=== PATIENT | female | born 1985 | race American Indian/Alaskan Native ===

== ENCOUNTER → 2019-09-11 16:41 | Outpatient (CLI) | payer OTHER, SELFPAY ==
[2019-09-11 18:01] LABS: Progesterone, Total 0.25 ng/mL
== END ==
PROVIDERS: Visit Provider Specialist
DX: N91.2 Amenorrhea, unspecified (principal)
CPT/HCPCS: 36415; 84144

== ENCOUNTER → 2020-08-01 09:27 | Outpatient (CLI) | payer OTHER, SELFPAY ==
--- NOTE | 2020-08-01 09:29 | DI.US.S_ITS ---
PROCEDURE: US PELVIC COMPLETE INDICATIONS: Heavy bleeding TECHNIQUE: Real-time scanning was performed of the pelvic organs, with image documentation. Additional endovaginal scanning was necessary due to incomplete visualization of the adnexal and endometrial structures by transabdominal scanning. COMPARISON: [facility], US, US PELVIC COMPLETE, 06/25/2018, 8:43. [facility], CT, CT ABD PELVIS W CON, 04/01/2016, 23:10. FINDINGS: Transabdominal scanning: Limited scanning through the kidneys shows no hydronephrosis. No pathologic free abdominal or pelvic fluid. Endovaginal scanning: Uterus: Uterus is normal in size at 9.3 x 5.9 x 6.3 cm. The endometrium measures 9 mm in combined thickness. Fluid and debris can be seen along the endometrial stripe. No abnormal vascularity can be seen along the endometrial stripe. Ovaries: The right ovary measures 4.1 x 3.7 x 3.1 cm. The left ovary measures 4.3 x 2.5 x 3.3 cm. The ovaries have a normal sonographic appearance. Numerous peripheral follicles can be seen within the ovaries. No adnexal masses are seen. IMPRESSION: Fluid and debris can be seen along the endometrial stripe, which is consistent with blood products. No abnormal vascularity can be seen along the endometrial stripe. Prominent ovaries are seen, with numerous peripheral follicles. The appearance of the ovaries is supportive of a diagnosis of polycystic ovarian syndrome. Dictated by: Heriberto Osorio M.D. on 08/01/2020 at 11:07 Approved by: Heriberto Osorio M.D. on 08/01/2020 at 11:09
[2020-08-01 09:55] LABS: Add Manual Diff / Slide Review NO; Basophils Absolute Auto 100 /uL (0-100); Basophils Percent Auto 0.7 % (0-2); Eosinophils Absolute Auto 400 /uL (0-450); Eosinophils Percent Auto 4.7 % (2-4); Hematocrit 25.8 % (36-46); Hemoglobin 8.6 g/dL (12.0-16.0); Lymphocytes Absolute Auto 3300 /uL (1100-4500); Mean Corpuscular HGB Conc 33.3 % (30-36); Mean Corpuscular Hemoglobin 28.4 PG (26-34); Mean Corpuscular Volume 85.2 fL (80-100); Monocytes Absolute Auto 500 /uL (0-900); Monocytes Percent Auto 6.1 % (3-14); Neutrophils Absolute Auto 4400 /uL (1500-7000); Neutrophils Percent Auto 50.5 % (50-75); Platelet Count 340 X10^3/uL (150-400); Red Blood Cell Count 3.02 X10^6/uL (4.0-5.2); Red Cell Distribution Width 14.2 % (11.6-14.8); White Blood Cell Count 8.7 X10^3/uL (4.5-11.0)
== END ==
PROVIDERS: PCP Family Medicine; Referring Provider Specialist; Visit Provider Specialist
DX: N92.0 Excessive and frequent menstruation with regular cycle (principal)
CPT/HCPCS: 36415; 76830; 76856; 85025

== ENCOUNTER → 2020-08-03 10:12 | Outpatient (CLI) | payer OTHER, SELFPAY ==
[2020-08-03 11:04] LABS: Ferritin 7 ng/mL (6-137)
== END ==
PROVIDERS: PCP Family Medicine; Visit Provider Specialist
DX: D64.9 Anemia, unspecified (principal)
CPT/HCPCS: 82728

== ENCOUNTER 2020-10-24 14:39 | Inpatient (IN) | payer OTHER, SELFPAY ==
[2020-10-24] VITALS (28 sets, daily range): BP systolic 103–130; BP diastolic 50–75; PULSE 99–131; RESP 16–36; TEMP 35.8–37.3; O2SAT 98–100; BMI 35.9
[2020-10-24] MEDS: SODIUM CHLORIDE 0.9% 1,000 ML 1000 ML IV (14:54)
[2020-10-24 15:17] LABS: Basophils Absolute Auto 100 /uL (0-100); Basophils Percent Auto 0.6 % (0-2); Eosinophils Absolute Auto 200 /uL (0-450); Eosinophils Percent Auto 2.1 % (2-4); Hematocrit 28.7 % (36-46); Hemoglobin 9.6 g/dL (12.0-16.0); Lymphocytes Absolute Auto 3100 /uL (1100-4500); Lymphocytes Percent Auto 36.7 % (25-40); Mean Corpuscular HGB Conc 33.5 % (30-36); Mean Corpuscular Hemoglobin 27.9 PG (26-34); Mean Corpuscular Volume 83.2 fL (80-100); Monocytes Absolute Auto 600 /uL (0-900); Monocytes Percent Auto 6.4 % (3-14); Neutrophils Absolute Auto 4600 /uL (1500-7000); Neutrophils Percent Auto 54.2 % (50-75); Platelet Count 285 X10^3/uL (150-400); Red Blood Cell Count 3.45 X10^6/uL (4.0-5.2); Red Cell Distribution Width 18.6 % (11.6-14.8); White Blood Cell Count 8.5 X10^3/uL (4.5-11.0)
[2020-10-24 15:20] LABS: INR 1.1 (0.9-1.3); Prothrombin Time 12.3 SECONDS (10.1-12.7)
[2020-10-24 15:23] LABS: Add Manual Diff / Slide Review SLIDE REVIEW; PTT Partial Thromboplastin Tim 23 SECONDS (26.4-36.2)
[2020-10-24 15:25] LABS: Alanine Aminotransferase 26 IU/L (<35); Albumin Globulin Ratio 1.4 (1.0-2.8); Alkaline Phosphatase 49 U/L (38-126); Aspartate Aminotransferase 23 IU/L (14-36); Bilirubin Total 0.1 mg/dL (0.2-1.3); Blood Urea Nitrogen 25 mg/dL (7-17); Calcium 8.9 mg/dL (8.4-10.2); Carbon Dioxide 21 mmol/L (22-32); Chloride 103 mmol/L (98-107); Estimated Glomerular Filt Rate > 60.0 mL/min (>60); Globulin 2.8 g/dL (1.7-4.1); Glucose 267 mg/dL (70-100); HEMOLYSIS < 15 (0-50); Lactate (Lactic Acid) 3.4 mmol/L (0.7-2.1); Potassium 3.6 mmol/L (3.4-5.1); Sodium 135 mmol/L (137-145); Total Protein 6.8 g/dL (6.3-8.2)
--- NOTE | 2020-10-24 15:41 | ED.GENADULT ---
HPI - General Adult General Chief complaint: Vaginal Bleeding Stated complaint: weakness, vomiting Time Seen by Provider: 10/24/20 14:56 Mode of arrival: Wheelchair History of Present Illness HPI narrative: 35-year-old type 1 diabetic with hypothyroidism and irregular menses/polycystic ovarian disease presents with severe vaginal bleeding and syncopal episode. She had had heavy vaginal bleeding 2-3 months ago and was restarted on control pills and did medroxyprogesterone taper at that time. That did stop the heavy bleeding. She had IV iron infusions because of iron deficiency anemia. Approximately 5 days ago was her 1st menstrual cycle after that episode. It began moderately heavy and has progressively gotten worse. Over the last 2 days she notes dramatic blood clots, increasing fatigue, increasing orthostasis type symptoms. She denies fevers, chills or significant abdominal pain (she notes mild pelvic cramping only). There has been no chest pain or palpitations. She has noted some exertional dyspnea and also complains of significant fatigue. Her sugars have been relatively stable with her average is at 100 (she has both pump and continuous monitor) and over the last 5 days with heavy bleeding has noticed that her averages are creeping up into the 150-200 range. Over the last 2-3 days when she is standing upright she is getting lightheaded, noting palpitations and feeling somewhat nauseated. Today she was driving from [facility] have blood work done with symptoms worsening and vaginal bleeding continuing with significant clots. As she was getting out of her car in coming into the hospital she had a syncopal episode. She came to as soon as she was supine. Related Data Home Medications Medication Instructions Recorded Confirmed insulin regular hum U-500 conc 500 25 unit SUBCUT BEDTIME 06/25/18 10/24/20 unit/mL subcutaneous soln levothyroxine 125 mcg tablet 112 mcg PO QDAY@0600 #30 tab 06/25/18 10/24/20 metformin 850 mg tablet 850 mg PO BID 06/25/18 10/24/20 rosuvastatin 20 mg tablet 20 mg PO DAILY 06/25/18 10/24/20 semaglutide 1 mg/dose (2 mg/1.5 1 mg SUBCUT QWEEK 06/02/20 10/24/20 mL) subcutaneous pen injector albuterol sulfate [Proventil HFA] 0.09 mg IH Q4HP PRN 10/24/20 lisinopril 5 mg PO DAILY 10/24/20 10/24/20 venlafaxine 75 mg PO DAILY 10/24/20 10/24/20 Previous Rx's Medication Instructions Recorded norethindrone (contraceptive) 0.35 0.35 mg PO DAILY #84 tab 06/02/20 mg tablet Allergies Allergy/AdvReac Type Severity Reaction Status Date / Time Penicillins [PENICILLINS] Allergy Severe ANAPHYLAXIS Verified 08/17/20 13:06 bupropion [BUPROPION] AdvReac Intermediate FROM Verified 08/17/20 13:06 CONTRAVE N/V naltrexone [NALTREXONE] AdvReac Intermediate FROM Verified 08/17/20 13:06 CONTRAVE N/V anti-nausea per pt reprot Allergy Intermediate Nausea Uncoded 08/17/20 13:06 unsure which Review of Systems Review of Systems ROS Unobtainable: All systems reviewed & are unremarkable except as noted in HPI and below Patient History Medical History Depression Diabetes mellitus Hepatitis Infertility Irregular periods/menstrual cycles Menorrhagia with regular cycle (01/31/16) Ovarian cyst Painful menstrual periods Surgical History Anesthesia History of ear surgery Social History household members: spouse and children Smoking Status: Never smoker alcohol intake: current Smoking Status: Never smoker Substance Use Type: does not use Exam Narrative Exam Narrative: General: Very pale but in no acute distress. Able to give a complete and coherent history. Well-nourished well-developed HEENT: Moist mucous membranes, normal sclera with reactive pupils, very pale lips, sclera and mucous membranes Neck: No JVD, supple Respiratory: Lungs are clear to auscultation, no wheezing no rales no rhonchi. Full and symmetrical air movement Cardiac: Tachycardic but Regular rate and rhythm no murmurs no bruits. Orthostatic after a L of fluid simply going from lying down to sitting Abdomen: Soft, nontender, good bowel tones, no flank pain Skin: Warm and dry, no rashes Neurologic: Grossly neurologically intact with no obvious asymmetries or abnormalities Extremities: No trauma, well perfused Pelvic: Large clots are appreciated further exam is not pursued Psych: Cooperative, appropriate insight and affect Initial Vital Signs Initial Vital Signs: Vital Signs Temperature 96.4 F L 10/24/20 14:45 Pulse Rate 131 H 10/24/20 14:45 Respiratory Rate 16 10/24/20 14:45 Blood Pressure 124/58 L 10/24/20 14:45 Pulse Oximetry 100 10/24/20 14:45 Course Orders Ordered: ED Orders 10/24/20 14:57 COVID19 Stat 10/24/20 15:03 Complete Blood Count AUTO DIFF Stat Comprehensive Metabolic Panel Stat HCG Quantitative /Beta subunit Stat Lactate (Lactic Acid) Stat Packed Cells Stat Partial Thromboplastin Time Stat Prothrombin Time INR Stat Type and Screen Stat 10/24/20 16:25 Hemoglobin and Hematocrit Stat Dextrose (Dextrose 50 % In Water 25 Gm/50 Ml Syringe) 25 gm IV PRN PRN PRN Reason: Hypoglycemia Lactated Ringer's (Lactated Ringers) 1,000 mls @ 100 mls/hr IV CONT IRIS Medroxyprogesterone Acetate (Medroxyprogesterone Acetate 10 Mg Tablet) 10 mg PO Q2H [facility] Last Admin: 10/24/20 19:03 Dose: 10 mg Documented by: POLO Discontinued Medications Sodium Chloride (Normal Saline 0.9%) 1,000 mls @ 1,000 mls/hr IV BOLUS ONE Stop: 10/24/20 15:49 Last Infusion: 10/24/20 16:36 Dose: 0 mls/hr Documented by: Admin: 10/24/20 14:54 Dose: 1,000 mls/hr Documented by: EVA Vital Signs Vital signs: Vital Signs - 8 hr 10/24/20 14:45 10/24/20 14:50 10/24/20 14:54 Temperature 96.4 F L Pulse Rate 131 H 124 H 123 H Respiratory Rate 16 24 36 H Blood Pressure 124/58 L 111/50 L Blood Pressure [Left Arm] Pulse Oximetry 100 99 100 10/24/20 15:00 10/24/20 15:03 10/24/20 15:15 Temperature Pulse Rate 118 H 118 H 118 H Respiratory Rate 30 H 30 H 28 H Blood Pressure 120/58 L 112/58 L Blood Pressure [Left Arm] Pulse Oximetry 100 100 100 10/24/20 15:30 10/24/20 15:45 10/24/20 16:00 Temperature Pulse Rate 115 H 111 H 117 H Respiratory Rate 29 H 24 24 Blood Pressure 116/63 108/56 L 106/53 L Blood Pressure [Left Arm] Pulse Oximetry 100 100 100 10/24/20 16:10 10/24/20 16:15 10/24/20 16:30 Temperature 97.8 F Pulse Rate 111 H 113 H 111 H Respiratory Rate 16 16 24 Blood Pressure 130/60 117/64 Blood Pressure [Left Arm] 117/60 Pulse Oximetry 100 100 100 10/24/20 16:45 10/24/20 16:51 10/24/20 16:56 Temperature 97.8 F Pulse Rate 115 H 110 H 110 H Respiratory Rate 17 28 H 20 Blood Pressure 117/63 117/60 117/60 Blood Pressure [Left Arm] Pulse Oximetry 100 100 10/24/20 17:00 10/24/20 17:12 10/24/20 17:15 Temperature 98.8 F Pulse Rate 109 H 111 H 108 H Respiratory Rate 29 H 29 H 26 H Blood Pressure 116/59 L 122/67 111/61 Blood Pressure [Left Arm] Pulse Oximetry 100 100 100 10/24/20 17:30 Temperature Pulse Rate 109 H Respiratory Rate 25 H Blood Pressure Blood Pressure [Left Arm] Pulse Oximetry 100 Medical Decision Making Medical Records Medical records reviewed: Yes I reviewed the patient's medical records. Lab Data Lab results reviewed: Yes I reviewed the patient's lab results. Result diagrams: 10/24/20 16:25 10/24/20 15:03 Labs: Lab Results 10/24/20 10/24/20 10/24/20 Range/Units 14:57 15:03 15:03 WBC 8.5 (4.5-11.0) X10^3/uL RBC 3.45 L (4.0-5.2) X10^6/uL Hgb 9.6 L (12.0-16.0) g/dL Hct 28.7 L (36-46) % MCV 83.2 (80-100) fL MCH 27.9 (26-34) PG MCHC 33.5 (30-36) % RDW 18.6 H (11.6-14.8) % Plt Count 285 (150-400) X10^3/uL Neut % (Auto) 54.2 (50-75) % Lymph % (Auto) 36.7 (25-40) % [place] % (Auto) 6.4 (3-14) % Eos % (Auto) 2.1 (2-4) % Baso % (Auto) 0.6 (0-2) % Neut # (Auto) 4600 (5232-2863) /uL Lymph # (Auto) 3100 (9108-2216) /uL [place] # (Auto) 600 (0-900) /uL Eos # (Auto) 200 (0-450) /uL Baso # (Auto) 100 (0-100) /uL RBC Morphology See below Polychromasia 1+ H Hypochromasia 1+ H Microcytosis 1+ H PT 12.3 (10.1-12.7) SECONDS INR 1.1 (0.9-1.3) APTT 23 L (26.4-36.2) SECONDS Sodium (137-145) mmol/L Potassium (3.4-5.1) mmol/L Chloride (98-107) mmol/L Carbon Dioxide (22-32) mmol/L BUN (7-17) mg/dL Creatinine (0.52-1.04) mg/dL Estimated GFR (>60) mL/min BUN/Creatinine Ratio (6-22) Glucose (70-100) mg/dL Lactate (0.7-2.1) mmol/L Calcium (8.4-10.2) mg/dL Total Bilirubin (0.2-1.3) mg/dL AST (14-36) IU/L ALT (<35) IU/L Alkaline Phosphatase (38-126) U/L Total Protein (6.3-8.2) g/dL Albumin (3.5-5.0) g/dL Globulin (1.7-4.1) g/dL Albumin/Globulin Ratio (1.0-2.8) HCG, Quant mIU/mL SARS-CoV-2 (PCR) Negative (Negative) Blood Type Antibody Screen Crossmatch 10/24/20 10/24/20 10/24/20 Range/Units 15:03 15:03 15:03 WBC (4.5-11.0) X10^3/uL RBC (4.0-5.2) X10^6/uL Hgb (12.0-16.0) g/dL Hct (36-46) % MCV (80-100) fL MCH (26-34) PG MCHC (30-36) % RDW (11.6-14.8) % Plt Count (150-400) X10^3/uL Neut % (Auto) (50-75) % Lymph % (Auto) (25-40) % [place] % (Auto) (3-14) % Eos % (Auto) (2-4) % Baso % (Auto) (0-2) % Neut # (Auto) (1607-0186) /uL Lymph # (Auto) (4501-3038) /uL [place] # (Auto) (0-900) /uL Eos # (Auto) (0-450) /uL Baso # (Auto) (0-100) /uL RBC Morphology Polychromasia Hypochromasia Microcytosis PT (10.1-12.7) SECONDS INR (0.9-1.3) APTT (26.4-36.2) SECONDS Sodium 135 L (137-145) mmol/L Potassium 3.6 (3.4-5.1) mmol/L Chloride 103 (98-107) mmol/L Carbon Dioxide 21 L (22-32) mmol/L BUN 25 H (7-17) mg/dL Creatinine 1.00 (0.52-1.04) mg/dL Estimated GFR > 60.0 (>60) mL/min BUN/Creatinine Ratio 25.0 H (6-22) Glucose 267 H (70-100) mg/dL Lactate 3.4 H (0.7-2.1) mmol/L Calcium 8.9 (8.4-10.2) mg/dL Total Bilirubin 0.1 L (0.2-1.3) mg/dL AST 23 (14-36) IU/L ALT 26 (<35) IU/L Alkaline Phosphatase 49 (38-126) U/L Total Protein 6.8 (6.3-8.2) g/dL Albumin 4.0 (3.5-5.0) g/dL Globulin 2.8 (1.7-4.1) g/dL Albumin/Globulin Ratio 1.4 (1.0-2.8) HCG, Quant < 2.4 mIU/mL SARS-CoV-2 (PCR) (Negative) Blood Type A Positive Antibody Screen Negative Crossmatch See Detail 10/24/20 Range/Units 16:25 WBC (4.5-11.0) X10^3/uL RBC (4.0-5.2) X10^6/uL Hgb 8.8 L (12.0-16.0) g/dL Hct 26.0 L (36-46) % MCV (80-100) fL MCH (26-34) PG MCHC (30-36) % RDW (11.6-14.8) % Plt Count (150-400) X10^3/uL Neut % (Auto) (50-75) % Lymph % (Auto) (25-40) % [place] % (Auto) (3-14) % Eos % (Auto) (2-4) % Baso % (Auto) (0-2) % Neut # (Auto) (7626-6152) /uL Lymph # (Auto) (4745-0669) /uL [place] # (Auto) (0-900) /uL Eos # (Auto) (0-450) /uL Baso # (Auto) (0-100) /uL RBC Morphology Polychromasia Hypochromasia Microcytosis PT (10.1-12.7) SECONDS INR (0.9-1.3) APTT (26.4-36.2) SECONDS Sodium (137-145) mmol/L Potassium (3.4-5.1) mmol/L Chloride (98-107) mmol/L Carbon Dioxide (22-32) mmol/L BUN (7-17) mg/dL Creatinine (0.52-1.04) mg/dL Estimated GFR (>60) mL/min BUN/Creatinine Ratio (6-22) Glucose (70-100) mg/dL Lactate (0.7-2.1) mmol/L Calcium (8.4-10.2) mg/dL Total Bilirubin (0.2-1.3) mg/dL AST (14-36) IU/L ALT (<35) IU/L Alkaline Phosphatase (38-126) U/L Total Protein (6.3-8.2) g/dL Albumin (3.5-5.0) g/dL Globulin (1.7-4.1) g/dL Albumin/Globulin Ratio (1.0-2.8) HCG, Quant mIU/mL SARS-CoV-2 (PCR) (Negative) Blood Type Antibody Screen Crossmatch Point of Care Testing Glucose POC 246 Point of care testing: Point of Care Testing Glucose POC 246 MDM Narrative Medical decision making narrative: 35-year-old woman with 5 days of heavy vaginal bleeding in 48 hours with very heavy vaginal bleeding. She is starting with moderate iron deficiency anemia already. Initial H&H with moderate dehydration is similar to her baseline. The fact that she has lost so much blood, has still quite a bit of clot easily seen and more coming out and that her heart rate before L of fluid was 130 to supine down to 117 supine but as soon as she sits up back to 100 and 30 with dizziness. I suspect she is going to need blood and will begin her 1st unit down here. Talk with her OBGYN about hospital admission. There is no evidence of DKA, or infection at this time Care is reviewed with Dr. Ellis, her OBGYN. She will plan on admitting her transfusing as needed and restarting the medroxyprogesterone taper that had been effective for her previously. Unfortunately Funmi still is hoping to have another so many of the options for dealing with this heavy vaginal bleeding are somewhat limited. At this time she is still significantly orthostatic but alert and appropriate. Safe for transfer to the floor Discharge Plan Departure Patient Disposition: Admitted as Observation Clinical Impression: Vaginal bleeding, Menorrhagia with irregular cycle, Syncope and collapse Anemia Qualifiers: Anemia type: iron deficiency Iron deficiency anemia type: chronic blood loss Qualified Code(s): D50.0 - Iron deficiency anemia secondary to blood loss (chronic) Admit Date/Time: 10/24/20 17:31 Admit Provider: Fatou Ellis
[2020-10-24 15:42] LABS: HCG Quantitative /Beta subunit < 2.4 mIU/mL
[2020-10-24 15:58] LABS: COVID19 -Nasal RAPID Negative (Negative)
[2020-10-24 16:05] LABS: Hypochromasia 1+; Microcytosis 1+; Polychromasia 1+
[2020-10-24 16:33] LABS: Hemoglobin 8.8 g/dL (12.0-16.0)
[2020-10-24 17:09] LABS: Reflexed Lactate in 2 Hours Y
--- NOTE | 2020-10-24 17:16 | P.HPOB_ITS ---
History of Present Illness History of Present Illness Reason for admission: vaginal bleeding Narrative: Funmi Leija is a 35 year old female admitted with menorrhagia and syncopal episode. Patient has a long history of PCOS with irregular menses. In the past after her delivery of her son she had a Mirena IUD placed which was expelled. Over the years the patient has been tried on Depo-Provera which had difficulty with her diabetes and depression. She is not a good candidate for combination control pills due to her medical illnesses and medications. Patient was hoping to have another child sometime in the future. Patient was seen for menorrhagia 08/01/2020 and had a normal vaginal ultrasound without evidence of uterine pathology, or endometrial pathology. Patient responded well to Provera therapy. She received IV iron therapy for anemia. She was started on norethindrone control pills and this is the 1st menses since her Provera withdrawal therapy. [facility] Medical History Depression Diabetes mellitus Hepatitis Infertility Irregular periods/menstrual cycles Menorrhagia with regular cycle (01/31/16) Ovarian cyst Painful menstrual periods Surgical History Anesthesia History of ear surgery Social History Smoking Status: Never smoker Meds Home Medications and Allergies Home Medications Medication Instructions Recorded Confirmed Type albuterol sulfate [Proventil HFA] 0.09 mg IH Q4HP #1 07/07/12 09/11/19 Rx insulin regular hum U-500 conc 500 25 unit SUBCUT BEDTIME 06/25/18 09/11/19 History unit/mL subcutaneous soln levothyroxine 125 mcg tablet 112 mcg PO QDAY@0600 #30 tab 06/25/18 09/11/19 Hi story lisinopril 10 1 tab PO DAILY 06/25/18 09/11/19 History mg-hydrochlorothiazide 12.5 mg tablet metformin 850 mg tablet 850 mg PO BID 06/25/18 09/11/19 History rosuvastatin 20 mg tablet 20 mg PO DAILY 06/25/18 09/11/19 History norethindrone (contraceptive) 0.35 0.35 mg PO DAILY #84 tab 06/02/20 06/02/20 Rx mg tablet semaglutide 1 mg/dose (2 mg/1.5 1 mg SUBCUT QWEEK 06/02/20 06/02/20 History mL) subcutaneous pen injector medroxyprogesterone 10 mg tablet See Rx Instructions PO DAILY #90 10/24/20 Rx tab Allergies Allergy/AdvReac Type Severity Reaction Status Date / Time Penicillins [PENICILLINS] Allergy Severe ANAPHYLAXIS Verified 08/17/20 13:06 bupropion [BUPROPION] AdvReac Intermediate FROM Verified 08/17/20 13:06 CONTRAVE N/V naltrexone [NALTREXONE] AdvReac Intermediate FROM Verified 08/17/20 13:06 CONTRAVE N/V anti-nausea per pt reprot Allergy Intermediate Nausea Uncoded 08/17/20 13:06 unsure which Review of Systems Review of Systems Narrative: Patient denies headaches. She was feeling lightheaded and dizzy. Patient denies any fevers. She started her menses 5 days ago. Initially it was fine but then she started passing clots. She had some mild cramping when her menses for started but no pain since. She has been faithful with her norethindrone control pills. She decided to come off [place] to get blood work done but was seen to have a syncopal episode in the parking lot and was brought to the emergency room. ROS: Yes All systems reviewed with the patient and are negative except as otherwise documented Exam Vital Signs (past 8 hours): - 10/24/20 14:45 10/24/20 14:50 10/24/20 14:54 Temperature 96.4 F L Pulse Rate 131 H 124 H 123 H Respiratory Rate 16 24 36 H Blood Pressure 124/58 L 111/50 L Blood Pressure [Left Arm] Pulse Oximetry 100 99 100 10/24/20 15:00 10/24/20 15:03 10/24/20 15:15 Temperature Pulse Rate 118 H 118 H 118 H Respiratory Rate 30 H 30 H 28 H Blood Pressure 120/58 L 112/58 L Blood Pressure [Left Arm] Pulse Oximetry 100 100 100 10/24/20 15:30 10/24/20 15:45 10/24/20 16:00 Temperature Pulse Rate 115 H 111 H 117 H Respiratory Rate 29 H 24 24 Blood Pressure 116/63 108/56 L 106/53 L Blood Pressure [Left Arm] Pulse Oximetry 100 100 100 10/24/20 16:10 10/24/20 16:15 10/24/20 16:30 Temperature 97.8 F Pulse Rate 111 H 113 H 111 H Respiratory Rate 16 16 24 Blood Pressure 130/60 117/64 Blood Pressure [Left Arm] 117/60 Pulse Oximetry 100 100 100 10/24/20 16:45 10/24/20 16:56 10/24/20 17:12 Temperature 97.8 F 98.8 F Pulse Rate 115 H 110 H 109 H Respiratory Rate 17 20 18 Blood Pressure 117/63 117/60 122/67 Blood Pressure [Left Arm] Pulse Oximetry 100 Oxygen Delivery Method Room Air Narrative Exam Narrative: HEENT exam within normal limits. Lungs are clear to auscultation percussion. Heart is tachycardic but regular rate and rhythm. Abdomen is soft, nontender. Patient is passing clots vaginally. Pelvic exam not performed. Extremities without edema and nontender. Objective Labs Result Diagrams: 10/24/20 16:25 10/24/20 15:03 Labs: Laboratory Results - last 24 hr 10/24/20 10/24/20 10/24/20 14:57 15:03 15:03 WBC 8.5 RBC 3.45 L Hgb 9.6 L Hct 28.7 L MCV 83.2 MCH 27.9 MCHC 33.5 RDW 18.6 H Plt Count 285 Neut % (Auto) 54.2 Lymph % (Auto) 36.7 [place] % (Auto) 6.4 Eos % (Auto) 2.1 Baso % (Auto) 0.6 Neut # (Auto) 4600 Lymph # (Auto) 3100 [place] # (Auto) 600 Eos # (Auto) 200 Baso # (Auto) 100 RBC Morphology See below Polychromasia 1+ H Hypochromasia 1+ H Microcytosis 1+ H PT 12.3 INR 1.1 APTT 23 L Sodium Potassium Chloride Carbon Dioxide BUN Creatinine Estimated GFR BUN/Creatinine Ratio Glucose Lactate Calcium Total Bilirubin AST ALT Alkaline Phosphatase Total Protein Albumin Globulin Albumin/Globulin Ratio HCG, Quant SARS-CoV-2 (PCR) Negative Blood Type Antibody Screen Crossmatch 10/24/20 10/24/20 10/24/20 15:03 15:03 15:03 WBC RBC Hgb Hct MCV MCH MCHC RDW Plt Count Neut % (Auto) Lymph % (Auto) [place] % (Auto) Eos % (Auto) Baso % (Auto) Neut # (Auto) Lymph # (Auto) [place] # (Auto) Eos # (Auto) Baso # (Auto) RBC Morphology Polychromasia Hypochromasia Microcytosis PT INR APTT Sodium 135 L Potassium 3.6 Chloride 103 Carbon Dioxide 21 L BUN 25 H Creatinine 1.00 Estimated GFR > 60.0 BUN/Creatinine Ratio 25.0 H Glucose 267 H Lactate 3.4 H Calcium 8.9 Total Bilirubin 0.1 L AST 23 ALT 26 Alkaline Phosphatase 49 Total Protein 6.8 Albumin 4.0 Globulin 2.8 Albumin/Globulin Ratio 1.4 HCG, Quant < 2.4 SARS-CoV-2 (PCR) Blood Type A Positive Antibody Screen Negative Crossmatch See Detail 10/24/20 16:25 WBC RBC Hgb 8.8 L Hct 26.0 L MCV MCH MCHC RDW Plt Count Neut % (Auto) Lymph % (Auto) [place] % (Auto) Eos % (Auto) Baso % (Auto) Neut # (Auto) Lymph # (Auto) [place] # (Auto) Eos # (Auto) Baso # (Auto) RBC Morphology Polychromasia Hypochromasia Microcytosis PT INR APTT Sodium Potassium Chloride Carbon Dioxide BUN Creatinine Estimated GFR BUN/Creatinine Ratio Glucose Lactate Calcium Total Bilirubin AST ALT Alkaline Phosphatase Total Protein Albumin Globulin Albumin/Globulin Ratio HCG, Quant SARS-CoV-2 (PCR) Blood Type Antibody Screen Crossmatch Assessment & Plan Assessment and plan (1) Menorrhagia with irregular cycle: Status: Acute (2) Type 2 diabetes mellitus without complication, with long-term current use of insulin: Status: None (3) Essential hypertension: Status: None Assessment & Plan narrative: Menorrhagia despite oral norethindrone. Patient will be given 2 units of packed red blood cells. Will begin Provera 10 mg every 2 hours to slow the bleeding. Once her bleeding slows we will try a Mirena IUD again to see if we can control her bleeding. Patient is agreeable that she will delay for now. Patient's insulin dependent diabetes is been under control. She has an insulin pump. She will continue use her insulin pump with hospitalization. Patient's depression and anxiety are under control. COVID-19 COVID-19 status: Negative Time Spent With Patient Time with patient: less than 15 minutes
[2020-10-24 17:54] LABS: Lactate 2HR (Lactic Acid Rflx) 1.4 mmol/L (0.7-2.1)
[2020-10-24] MEDS: MEDROXYPROGESTERONE ACETATE 10 MG TABLET PO ×4 (19:03→23:50)
[2020-10-24] MEDS: LACTATED RINGERS 1,000 ML 100 ML IV (23:19)
--- NOTE | 2020-10-24 23:29 | PC.NURSE ---
Pt denies dizziness and nausea, at rest; tolerated chicken soup for dinner; patient reports passing large, bloody clots into toilet; this RN called MD to confirm cancellation of UA order from ED, MD also aware of tachycardia between 110-118; HR WNL @ 99, s/p 2 units blood; IV fluids infusing and patient reports feeling better.
[2020-10-25] VITALS (14 sets, daily range): BP systolic 97–127; BP diastolic 49–80; PULSE 92–114; RESP 13–22; TEMP 36.2–37.2; O2SAT 95–100; BMI 35.9
--- NOTE | 2020-10-25 | PATH_ITS ---
[facility] Accession Number: [id number] . 01 Material submitted: . endometrium - ENDOMETRIAL CURETTINGS . 01 Clinical history: . WEAKNESS, VOMITING . 02 Diagnosis: Endometrial Curettings: Portions of proliferative endometrium with a small focus of benign eosinophilic metaplasia; negative for glandular hyperplasia, cytologic atypia, or malignancy. Some endometrial fragments demonstrate prominent vessels, suggestive of polyp, if clinical and imaging studies are concordant. MRV 10/27/2020 1023 Local . 02 Electronically signed: . Tamia Martinez MD, Pathologist NPI- [id number] . 01 Gross description: . The specimen is received in formalin, labeled endometrial curettings and consists of multiple whaley-pink fragments of soft tissue admixed with mucus and clotted blood measuring 2.0 x 1.5 x 0.3 cm in aggregate. The specimen is filtered and entirely submitted in cassette A1. ([id number]) /MRV 10/26/2020 0948 Local . 02 Pathologist provided ICD-10: N92.1 . 02 CPT . 164550 Performed at: 01 [facility] [address] [place] [address], [place], [place] [id number] MD Dick Dominguez MD Phone: [phone] Performed at: 02 [facility] [address] [place], [place] [id number] MD Mariam Croft MD Phone: [phone]
[2020-10-25] MEDS: MEDROXYPROGESTERONE ACETATE 10 MG TABLET PO ×8 (01:46→15:26)
--- NOTE | 2020-10-25 01:58 | PC.NURSE ---
Addendum entered by Tori Vigil R.N. 10/25/20 05:48: Up to bathroom this morning and peripad saturated with serosanguinous vaginal bleeding. Patient states she passed clots but RIVER RAFTING GUIDE reports no clots noted. Patient states bleeding has decreased from when first arrived at hospital. Original Note: 0004: patient is alert and oriented. Breath sounds CTA with RA sat of 99%. HRR but tachy in low 100's apically. Denies dizziness or SOB. Denies nausea. BT present and abdomen is soft. Denies dysuria, frequency or urgency. Is having continued vaginal bleeding causing urine to be blood tinged. Peripad changed and was approximately 50% saturated with serosanguinous drainage; noted moderate size clots in toilet after urinating but none noted on pad. Is able to turn herself in bed. Assisted when out of bed due to having fallen prior to hospitalization but appears steady on feet. Bilateral calf SCD's applied after being up to bathroom but now requested they be removed as she states she is unable to sleep with them on; reminded to ankle wave when awake. Denies pain. Fall risk score is high and bed alarm is activated.
[2020-10-25 06:26] LABS: Basophils Absolute Auto 0 /uL (0-100); Basophils Percent Auto 0.5 % (0-2); Eosinophils Absolute Auto 200 /uL (0-450); Eosinophils Percent Auto 2.7 % (2-4); Hematocrit 29.9 % (36-46); Hemoglobin 10.3 g/dL (12.0-16.0); Lymphocytes Absolute Auto 2800 /uL (1100-4500); Lymphocytes Percent Auto 31.8 % (25-40); Mean Corpuscular HGB Conc 34.5 % (30-36); Mean Corpuscular Hemoglobin 29.5 PG (26-34); Mean Corpuscular Volume 85.5 fL (80-100); Monocytes Absolute Auto 500 /uL (0-900); Monocytes Percent Auto 5.7 % (3-14); Neutrophils Absolute Auto 5200 /uL (1500-7000); Neutrophils Percent Auto 59.3 % (50-75); Platelet Count 231 X10^3/uL (150-400); Red Cell Distribution Width 17.4 % (11.6-14.8); White Blood Cell Count 8.7 X10^3/uL (4.5-11.0)
[2020-10-25 06:42] LABS: Add Manual Diff / Slide Review SLIDE REVIEW
[2020-10-25 06:55] LABS: Anisocytosis 1+; Polychromasia 1+
[2020-10-25] MEDS: LACTATED RINGERS 1,000 ML 100 ML IV (08:54)
--- NOTE | 2020-10-25 09:14 | CM.DANOTE ---
DCP: Case received, EMR reviewed and met with patient. Introduced self and role. Was able to obtain information from patient regarding her baseline activity level prior to hospitalization. DCP assessment completed with information currently available. Patient is a 35 year old female who admitted yesterday afternoon to the care of the hospitalist/MILK HANDLER team. PCP: Dr. Shine. Payer: confirmed: Ashley Ghosh. Patient came to the hospital via wheel-chair secondary to dizziness, near syncopal episode. Patient had been on her way to [facility] to get her blood work done, and she became weak, and was on the ground. Patient has diagnosis of menorrhagia, and was passing clots. She also has history of anemia, where she has had to get iron injections. Patient also has history of diabetes and depression. Met with patient in her room. She is pleasant, alert and oriented. She was sitting up in bed. Confirmed that she resides [place] with her spouse, Cedric, and her 14 year old son. She is employed on [place] at [employer]. She is independent at her baseline. P: DCP to continue to follow. Patient should be able to go home when she is medically stable. Bria Chery, RN/Staple Processing Machine Operator
--- NOTE | 2020-10-25 09:36 | P.PN_ITS ---
Subjective Subjective Date Patient Seen: 10/25/20 Time Patient Seen: 09:36 Interval history: Patient states she is feeling better. She is still little lightheaded. She was able to eat breakfast. She is still passing blood clots. Exam Vital Signs (past 8 hours): - 10/25/20 06:00 10/25/20 08:00 Temperature 99.0 F 97.8 F Pulse Rate 108 H 96 H Respiratory Rate 18 15 Blood Pressure 127/57 L 126/80 Pulse Oximetry 99 100 Oxygen Delivery Method Room Air Oxygen Flow Rate 0 Narrative Exam Narrative: Abdomen is soft, nontender. Patient is still passing blood clots with her urine. Extremities nontender. Objective Labs Result Diagrams: 10/25/20 05:47 10/24/20 15:03 Labs: Laboratory Results - last 24 hr 10/24/20 10/24/20 10/24/20 14:57 15:03 15:03 WBC 8.5 RBC 3.45 L Hgb 9.6 L Hct 28.7 L MCV 83.2 MCH 27.9 MCHC 33.5 RDW 18.6 H Plt Count 285 Neut % (Auto) 54.2 Lymph % (Auto) 36.7 [place] % (Auto) 6.4 Eos % (Auto) 2.1 Baso % (Auto) 0.6 Neut # (Auto) 4600 Lymph # (Auto) 3100 [place] # (Auto) 600 Eos # (Auto) 200 Baso # (Auto) 100 RBC Morphology See below Polychromasia 1+ H Hypochromasia 1+ H Anisocytosis Microcytosis 1+ H PT 12.3 INR 1.1 APTT 23 L Sodium Potassium Chloride Carbon Dioxide BUN Creatinine Estimated GFR BUN/Creatinine Ratio Glucose Lactate Calcium Total Bilirubin AST ALT Alkaline Phosphatase Total Protein Albumin Globulin Albumin/Globulin Ratio HCG, Quant SARS-CoV-2 (PCR) Negative Blood Type Antibody Screen Crossmatch 10/24/20 10/24/20 10/24/20 15:03 15:03 15:03 WBC RBC Hgb Hct MCV MCH MCHC RDW Plt Count Neut % (Auto) Lymph % (Auto) [place] % (Auto) Eos % (Auto) Baso % (Auto) Neut # (Auto) Lymph # (Auto) [place] # (Auto) Eos # (Auto) Baso # (Auto) RBC Morphology Polychromasia Hypochromasia Anisocytosis Microcytosis PT INR APTT Sodium 135 L Potassium 3.6 Chloride 103 Carbon Dioxide 21 L BUN 25 H Creatinine 1.00 Estimated GFR > 60.0 BUN/Creatinine Ratio 25.0 H Glucose 267 H Lactate 3.4 H Calcium 8.9 Total Bilirubin 0.1 L AST 23 ALT 26 Alkaline Phosphatase 49 Total Protein 6.8 Albumin 4.0 Globulin 2.8 Albumin/Globulin Ratio 1.4 HCG, Quant < 2.4 SARS-CoV-2 (PCR) Blood Type A Positive Antibody Screen Negative Crossmatch See Detail 10/24/20 10/24/20 10/25/20 16:25 17:32 05:47 WBC 8.7 RBC 3.50 L Hgb 8.8 L 10.3 L Hct 26.0 L 29.9 L MCV 85.5 MCH 29.5 MCHC 34.5 RDW 17.4 H Plt Count 231 Neut % (Auto) 59.3 Lymph % (Auto) 31.8 [place] % (Auto) 5.7 Eos % (Auto) 2.7 Baso % (Auto) 0.5 Neut # (Auto) 5200 Lymph # (Auto) 2800 [place] # (Auto) 500 Eos # (Auto) 200 Baso # (Auto) 0 RBC Morphology See below Polychromasia 1+ H Hypochromasia Anisocytosis 1+ H Microcytosis PT INR APTT Sodium Potassium Chloride Carbon Dioxide BUN Creatinine Estimated GFR BUN/Creatinine Ratio Glucose Lactate 1.4 Calcium Total Bilirubin AST ALT Alkaline Phosphatase Total Protein Albumin Globulin Albumin/Globulin Ratio HCG, Quant SARS-CoV-2 (PCR) Blood Type Antibody Screen Crossmatch [facility] Medical History Depression Diabetes mellitus Hepatitis Infertility Irregular periods/menstrual cycles Menorrhagia with regular cycle (01/31/16) Ovarian cyst Painful menstrual periods Surgical History Anesthesia History of ear surgery Social History household members: spouse and children Smoking Status: Never smoker alcohol intake: current Assessment & Plan Assessment and plan (1) Menorrhagia with irregular cycle: Status: Acute Assessment & Plan narrative: Patient is improved after 2 units of packed red blood cells. She is still passing blood clots despite Q 2 hour Provera. Discussed with the patient that the next step would be hysteroscopy D&C. Patient has had this before. She is also agreeable to have a Mirena IUD placed. Consent form her for hysteroscopy D&C was reviewed with the patient. Risk of infection, perforation of the uterus that could result in damage to internal structures such as bowel, bladder, ureters that could require opening the abdomen to repair or additional surgery. Continued bleeding. Reaction to medication or anesthesia could result in or permanent or partial disability.
[2020-10-25] MEDS: VENLAFAXINE ER 75 MG CAP PO (09:57)
[2020-10-25] MEDS: DEXTROSE 5%-LACTATED RINGERS 1,000 ML 84 ML IV (09:57)
--- NOTE | 2020-10-25 15:25 | DIET.PN ---
Dietary Progress Note Assessment: 35y F admitted for menorrhagia with irregular cycle r/t known PCOS referred to nutrition as pt is diabetic c insulin pump and following a ketogenic diet. HT: 160cm WT: 92kg UBW: pt is -10kg from 2018 BMI: 36.0 Labs: hgb 8.6 L, BUN 25 H, admit BG 267 H Pt has been using insulin pump to manage her DM for 10y, has been using current pump x1.5y. Pt went on Ozempic a year ago, it suppresses her appetite, causes some dry mouth and reduced thirst. Per pt has had A1cs in the 7's but her last reading was around 9 (not in [facility] records). Pt endorses starting to drink soda again 12-24oz/d which motivated her to follow a ketogenic diet to try to better manage her BGs and weight around 6w ago. Pt reports BGs down to 90-120s rather than >200s because of the diet. Pt tries to limit carb intake to 30 net carbs/d and understands she still doses insulin to full carb count. Pt tries to stick to 1200-1400kcals. Pt avoiding beans and other high fiber foods secondary to carb content. Usual Day: fasts 8pm-8am 8am 16oz latte made c heavy cream from coffee stand (she reports its 8oz whipping cream) 2pm low carb tortilla c avocado, chicken or red meat, and salad Dinner: similar Sn: peanuts, macadamia nuts, baybel cheese, veggies drinks: water, latte RD Impression: Pt well informed regarding use and calculations r/t insulin pump usage. Pts Ozempic should be supporting her weight loss, however pts consumption of 16oz heavy cream latte is providing little nutrition in the morning, increasing her risk for cardiovascular disease from saturated fat (at higher risk r/t PCOS), and comes in at a whopping 1200 kcals. Pt is miscalculating kcal count of her latte likely reducing any positive effects of a keto diet. When pt is off keto, she craves sweets and often falls into poor dietary patterns. Interventions: 1. Encouraged pt to find a stable, healthy, moderate/low carb (120g) diet she can stick to in the prison to support healthy weight over time. Encouraged pt to remove daily latte or make 8oz max, and add healthy, protein rich foods to support metabolism and PCOS including egg bites for a balanced breakfast meal. 2. Encouraged pt to drink spearmint tea (warm or iced) to encourage fluid intake as well as support for PCOS. 3. Encouraged pt to start regular joyful exercise including some strength training to aid weight loss and support lean body mass and metabolism. 4. Encouraged pt to consume more soluble fiber from beans and lars seeds to support cardiovascular health, blood sugar regulation, and weight. Diet Order: CCD EER: 120g CHO
--- NOTE | 2020-10-25 15:41 | PM.PREOP ---
Pre-operative Note COVID-19 COVID-19 status: Negative Result date/Date tested (Pos, Neg/Pending): 10/24/20 Interval Note History & Physical reviewed/Exam performed by Physician: Yes Changes to H&P: No
[2020-10-25] MEDS: LACTATED RINGERS 1,000 ML 42 ML IV (15:45)
--- NOTE | 2020-10-25 16:12 | SUR.OPER ---
Lithotomy on padded OR bed, head on pillow, arms secured on padded arm boards at <90 degrees abduction. Legs secured in padded yellow fins stirrups.
--- NOTE | 2020-10-25 16:38 | P.OP_ITS ---
Operative Date/Time/Diagnoses Date of procedure: 10/25/20 Time of procedure: 16:38 Pre-op diagnosis: Menorrhagia with irregular cycle Post-op diagnosis: same Procedure & Clinicians Procedure: Hysteroscopy D&C with placement of Mirena IUD Same procedure as scheduled: Yes Indications: Menorrhagia with irregular cycle requiring blood transfusion Surgeon: Fatou Ellis Click Yes if Unassisted: Yes Anesthesia Type: General Operative Notes Findings: Normal exam under anesthesia. Blood clots in vagina. Very thin endometrium. No obvious cause of heavy bleeding. Bicornuate uterus. Closure Type: not applicable Specimen(s): other (Endometrial curettage) Estimated Blood Loss (mL): 5 Blood products transfused: none Procedure in detail: The patient was brought to the operating room where she underwent general anesthesia. She was placed in low stirrups She was prepped and draped in usual sterile fashion with pulsatile stockings in place and functional, warming in place. No antibiotics were indicated. Her bladder was drained with in and out catheter. A single-tooth tenaculum was placed on the anterior lip of the cervix and the uterus dilated to #8 Hegar dilator. An endometrial curettage was performed and tissue sent to pathology. The hy steroscope was placed into the uterus with a saline solution running and under constant suction. The patient went to recovery room in good condition counts of instruments and sponges were correct. Complications: none Post-operative Condition: stable Disposition: Acute Care Plan for aftercare: Mirena IUD placed and patient will be given estrogen to try to thicken the lining. Monitor overnight for stability of bleeding.
[2020-10-25] MEDS: OXYCODONE/ACETAMINOPHEN 5/325 TABLET 1 TAB PO (16:42)
[2020-10-25 17:40] LABS: Hematocrit 26.2 % (36-46); Hemoglobin 8.8 g/dL (12.0-16.0)
--- NOTE | 2020-10-25 19:36 | PC.NURSE ---
A&OX3. 99%RA. pt ate her dinner tonight. pt denies pain after her procedure. pt able to void without difficulty. her kalina-pad was 20% saturated, no clots visible.
[2020-10-25] MEDS: METFORMIN 850 MG TABLET PO (21:24)
[2020-10-25] MEDS: estradioL 1 MG TABLET 2 MG PO (21:30)
[2020-10-26 03:47] VITALS: BP 110/55; PULSE 95; RESP 16; TEMP 37.1; O2SAT 98
--- NOTE | 2020-10-26 04:04 | PC.NURSE ---
patient is alert and oriented. Breath sounds CTA with RA sat of 98%. HRR. States she still felt slightly dizzy when up to bathroom earlier this shift. Denies nausea. BT present and is passing flatus but has not had a BM since 10/22. Denies dysuria, frequency or urgency with urination; had 1 small blood clot with last urination. Small amount serosanguinous drainage on peripad. Is able to turn herself. Assisted to bathroom with SBA due to recent fall and continued dizziness. SCD's no longer ordered. Fall risk score is high and bed alarm is activated.
[2020-10-26 06:22] LABS: Add Manual Diff / Slide Review NO; Basophils Absolute Auto 0 /uL (0-100); Basophils Percent Auto 0.5 % (0-2); Eosinophils Absolute Auto 300 /uL (0-450); Eosinophils Percent Auto 3.8 % (2-4); Hematocrit 25.1 % (36-46); Hemoglobin 8.5 g/dL (12.0-16.0); Lymphocytes Absolute Auto 2000 /uL (1100-4500); Lymphocytes Percent Auto 29.3 % (25-40); Mean Corpuscular HGB Conc 33.9 % (30-36); Mean Corpuscular Hemoglobin 29.6 PG (26-34); Mean Corpuscular Volume 87.2 fL (80-100); Monocytes Absolute Auto 400 /uL (0-900); Monocytes Percent Auto 5.4 % (3-14); Neutrophils Absolute Auto 4200 /uL (1500-7000); Platelet Count 209 X10^3/uL (150-400); Red Blood Cell Count 2.88 X10^6/uL (4.0-5.2); Red Cell Distribution Width 17.4 % (11.6-14.8); White Blood Cell Count 6.8 X10^3/uL (4.5-11.0)
--- NOTE | 2020-10-26 07:01 | PM.DS.1 ---
History of Present Illness History of Present Illness Date Patient Seen: 10/26/20 Time Patient Seen: 07:01 Chief complaint: weakness, vomiting Narrative: Patient was admitted for menorrhagia that caused anemia and syncopal episode requiring 2 units packed RBCs. Patient had a hysteroscopy D+C with thin endometrium, bicornuate uterus, with placement of a Mirena IUD. No specific cause of menorrhagia was found. Discharge Providers Provider Date of admission: 10/24/20 17:31 Discharge Date: 10/26/20 Primary care physician: Koby Shine MD Consults: 10/24/20 18:34 Consult to Dietitian, Adult Routine Comment: Reason For Exam: diabetes, ketogenic diet Discharge provider: Fatou Ellis MD Summary Hospital Course Discharge Diagnosis: menorrhagia, anemia,bicornuate uterus Hospital Course: Patient was admitted for menorrhagia that caused anemia and syncopal episode requiring 2 units packed RBCs. Patient had a hysteroscopy D+C with thin endometrium, bicornuate uterus, with placement of a Mirena IUD. No specific cause of menorrhagia was found. Patient did stop heavy bleeding after surgery. Patient received IV iron prior to discharge due to continued anemia and fatigue. Patient was urinating well, ambulatory and bleeding had stopped. Vital signs stable. Status at Discharge Cognitive/behavioral status at discharge: oriented Functional status at discharge: independent ambulation Overall status at discharge: patient is progressing back to baseline Time Spent with Patient Time spent: Less than 30 minutes Exam Vital Signs (past 8 hours): - 10/26/20 03:47 Temperature 98.8 F Pulse Rate 95 H Respiratory Rate 16 Blood Pressure 110/55 L Pulse Oximetry 98 Oxygen Delivery Method Room Air Oxygen Flow Rate 0 Narrative Exam Narrative: Abdomen is soft, non tender. No active bleeding. Extremities without edema and non tender. Objective Labs Result Diagrams: 10/26/20 05:56 10/24/20 15:03 Labs: Laboratory Results - last 24 hr 10/25/20 10/26/20 17:13 05:56 WBC 6.8 RBC 2.88 L Hgb 8.8 L 8.5 L Hct 26.2 L 25.1 L MCV 87.2 MCH 29.6 MCHC 33.9 RDW 17.4 H Plt Count 209 Neut % (Auto) 61.0 Lymph % (Auto) 29.3 [place] % (Auto) 5.4 Eos % (Auto) 3.8 Baso % (Auto) 0.5 Neut # (Auto) 4200 Lymph # (Auto) 2000 [place] # (Auto) 400 Eos # (Auto) 300 Baso # (Auto) 0 PFSH Medical History (Updated 10/26/20 @ 10:42 by Fatou Ellis MD) Depression Diabetes mellitus Hepatitis Infertility Irregular periods/menstrual cycles Menorrhagia with regular cycle (01/31/16) Ovarian cyst Painful menstrual periods Surgical History Anesthesia History of ear surgery Social History household members: spouse and children Smoking Status: Never smoker alcohol intake: current Discharge Assessment & Plan Assessment and Plan Assessment: Menorrhagia causing significant anemia, syncopal episode with unclear etiology on hysteroscopy D+C. Patient given 2 units PRBCs, IV iron sucrose, Mirena IUD placed (unclear if will stay in place due to bicornuate uterus). Plan of Treatment: Home after IV iron treatment. Continue OTC oral iron. Stop norethindrone OCPs while IUD in place. Tranexemic acid RX if she develops heavy bleeding again. Pt planning in 1 year. Discharge Plan Discharge Plan Patient Disposition: Home Discharge orders & Medications Prescriptions: Continued levothyroxine [Synthroid] 125 mcg tablet 112 mcg PO QDAY@0600 Qty: 30 RF: 0 tranexamic acid 650 mg tablet 1,300 mg PO TID 5 Days Qty: 30 RF: 0 rosuvastatin 20 mg tablet 20 mg PO DAILY RF: 0 metformin 850 mg tablet 850 mg PO BID RF: 0 insulin regular hum U-500 conc [Humulin R U-500 (Conc) Insulin] 500 unit/mL solution 25 unit SUBCUT BEDTIME RF: 0 Ozempic 1 mg/dose (2 mg/1.5 mL) pen injector 1 mg SUBCUT QWEEK RF: 0 lisinopril 5 mg Tablet 5 mg PO DAILY RF: 0 albuterol sulfate [Proventil HFA] 90 MCG/PUFF HFA aerosol inhaler 0.09 mg I[facility] Q4HP PRN (Reason: Shortness Of Breath Or Wheezing) RF: 0 venlafaxine 75 mg Capsule,Extended Release 24hr 75 mg PO DAILY RF: 0 Discontinued norethindrone (contraceptive) 0.35 mg tablet 0.35 mg PO DAILY Qty: 84 RF: 3 Follow up/Referrals: Koby Shine MD [Primary Care Provider] - Diet/Activity/Treatments Diet: Regular Activity: Nothing in vagina for 1 week Skin/Wound/Dressing Care Report to your healthcare provider any signs of infection, such as:: chills, fever and increased pain Visit Report/Discharge Packet Instructions: Anemia, DI for Hysteroscopy Stand Alone Forms: Surgery Discharge Discharge Data Primary Care Provider: Koby Shine Attending Provider: Faotu Ellis
[2020-10-26 07:40] VITALS: O2SAT 97
[2020-10-26] MEDS: LEVOTHYROXINE 112 MCG TABLET PO (07:52)
[2020-10-26] MEDS: diphenhydrAMINE 25 MG TABLET PO (07:52)
[2020-10-26 08:12] VITALS: BP 115/76
[2020-10-26] MEDS: lisinopriL 5 MG TABLET PO (08:12)
[2020-10-26] MEDS: SODIUM CHLORIDE 0.9% FLUSH 10 ML IV (08:15)
[2020-10-26] MEDS: estradioL 1 MG TABLET 2 MG PO (08:15)
[2020-10-26] MEDS: ROSUVASTATIN 10 MG TABLET 20 MG PO (08:15)
[2020-10-26] MEDS: VENLAFAXINE ER 75 MG CAP PO (08:15)
[2020-10-26] MEDS: METFORMIN 850 MG TABLET PO (08:15)
[2020-10-26] MEDS: IRON SUCROSE 300 MG in SODIUM CHLORIDE 0.9% 100 ML 115 ML IV (08:53)
[2020-10-26 09:00] VITALS: BP 115/76; PULSE 110; RESP 17; TEMP 36.6; O2SAT 100
[2020-10-26 09:25] VITALS: O2SAT 94
[2020-10-26] MEDS: HYDROCODONE/ACET 5/325 TABLET 1 TAB PO (12:18)
--- NOTE | 2020-10-26 14:12 | PC.NURSE ---
Pt is dressed and ready for discharge home with MIL. Went over d/c instructions with Pt and Mother, discussed d/c meds, time of last dose, reviewed stroke education, follow up, s/s of infection and when to call MD. Encouraged Pt to remember to get up slowly from bed, chair, toiled to prevent dizziness. Encouraged fluid intake. Pt denies further questions and was taken out via w/c by INSPECTOR WATCH ASSEMBLY to POV with Mother and all belongings.
--- NOTE | 2020-10-26 15:04 | CM.DPC ---
DCP Discharge Home Per MD, pt is medically stable to d/c home today with no identified barriers to discharge. Per RN, completed d/c instructions bedside with pt and her mother and helped out to mother POV and no concerns at this time. Plan: Patient to d/c home via mother's POV and outpt follow up and no SW needs at this time. PAULINA Menjivar
== END 2020-10-26 14:15 | disposition home or self-care (01) | DRG 744 ==
LOC: ED 17:08 → AC 10-25 07:32
PROVIDERS: Obstetrics & Gynecology; Admitting Provider Specialist; Emergency Provider Emergency Medicine; PCP Family Medicine; Referring Provider Emergency Medicine; Visit Provider Specialist
PROC: 0UDB8ZZ Extraction of Endometrium, Via Natural or Artificial Opening Endoscopic (ICD-10-PCS; CPT 58558; principal; 2020-10-25 16:00)
DX: N92.1 Excessive and frequent menstruation with irregular cycle (principal); D62 Acute posthemorrhagic anemia; E28.2 Polycystic ovarian syndrome; R55 Syncope and collapse; Q51.3 Bicornate uterus; I10 Essential (primary) hypertension; E11.9 Type 2 diabetes mellitus without complications; F32.9 Major depressive disorder, single episode, unspecified; Z79.3 Long term (current) use of hormonal contraceptives; Z20.822 Contact with and (suspected) exposure to COVID-19; Z79.4 Long term (current) use of insulin
CPT/HCPCS: 36415; 36430; 58300; 58558; 80053; 82962; 83605; 84702; 85014; 85018; 85025; 85610; 85730; 86850; 86900; 86901; 87635; 96360; 96361; 99283; 99284; C9803; G0378; P9016; J1756; J2250; J2405; J2704; J3010; J7121; J7298